=== PATIENT | male | born 1990 | race African-American/Black ===

== ENCOUNTER 2019-03-27 15:11 | Emergency (ER) | payer SELFPAY ==
[~2019-03-27] VITALS: Ht 175.3 cm; Wt 74.8 kg
[2019-03-27 15:19] VITALS: BP 112/67
[2019-03-27] MEDS ORDERED: NKM (15:21)
[2019-03-27] MEDS ORDERED: Tetracaine 0.5% Opth 4ml Soln RIGHT EYE ONE (15:30)
[2019-03-27] MEDS ORDERED: Fluorescein Strips RIGHT EYE ONE (15:30)
--- NOTE | 2019-03-27 15:44 | Emergency Room Report ---
History of Present Illness General Chief Complaint: Eye Problems Source: Patient Present Illness HPI 28-year-old male presents to the emergency department complaining of 8 out of 10 in severity localized pain, swelling, erythema and tenderness to the right lower eyelid 3 days. Patient denies pain inside the eye he denies warm body sensation or scratching sensation. Denies Discharge, changes or loss of vision, Floaters, Flashing lights, Diplopia/blurry vision, or Increased tearing. Denies contact lens use. Allergies: Coded Allergies: No Known Allergies (Unverified , 03/27/19) Patient History Past Medical History: see triage record Past Surgical History: none Pertinent Family History: none Reviewed Nursing Documentation: PMH: Agreed; PSxH: Agreed Nursing Documentation-PMH Past Medical History: No Stated History Review of Systems All Other Systems: negative except mentioned in HPI Physical Exam Vital Signs Date Time Temp Pulse Resp B/P (MAP) Pulse Ox O2 Delivery O2 Flow Rate FiO2 03/27/19 15:19 98.1 83 19 112/67 (82) 95 Room Air Sp02 EP Interpretation: reviewed, normal General Appearance: no apparent distress, alert, GCS 15, non-toxic Head: normocephalic, atraumatic Eyes: right eye lid inflammation - hordeolum externum of the Right eyelid.; bilateral eye normal inspection, bilateral eye PERRL, bilateral eye EOMI, bilateral eye visual acuity ENT: hearing grossly normal, normal voice Neck: full range of motion Respiratory: chest non-tender, lungs clear, normal breath sounds, speaking full sentences Cardiovascular #1: regular rate, rhythm, no edema Gastrointestinal: normal bowel sounds, non tender, soft Rectal: deferred Genitourinary: normal inspection Musculoskeletal: back normal, gait/station normal, normal range of motion, non- tender Neurologic: alert, oriented x3, responsive, motor strength/tone normal, sensory intact, speech normal, grossly normal Psychiatric: judgement/insight normal Skin: normal color, no rash, warm/dry, well hydrated Lymphatic: no adenopathy Medical Decision Making PA Attestation Dr. Arriaga is my supervising Physician whom patient management has been discussed with. Diagnostic Impression: Primary Impression: Hordeolum externum of left lower eyelid ER Course 28-year-old male presents to the emergency department complaining of 8 out of 10 in severity localized pain, swelling, erythema and tenderness to the right lower eyelid 3 days. Patient denies pain inside the eye he denies warm body sensation or scratching sensation. Denies Discharge, changes or loss of vision, Floaters, Flashing lights, Diplopia/blurry vision, or Increased tearing. Denies contact lens use. Ddx considered but are not limited to: FB, Corneal Ulcer, conjunctivitis. Iridis , hordeolum, chalazion. Vital signs: are WNL, pt. is afebrile H&PE are most consistent with: hordeolum externum of the Right eyelid. ORDERS: None required at this time ED INTERVENTIONS: none at this time. DISCHARGE: At this time pt. is stable for d/c to home. Will provide printed patient care instructions, and any necessary prescriptions. Care plan and follow up instructions have been discussed with the patient prior to discharge. Last Vital Signs Date Time Temp Pulse Resp B/P (MAP) Pulse Ox O2 Delivery O2 Flow Rate FiO2 03/27/19 15:19 98.1 83 19 112/67 (82) 95 Room Air Disposition: HOME, SELF-CARE Condition: Stable Patient Instructions: Mj Additional Instructions: Take medications as directed. Follow up with a Clerk To Justice in 3 days, even if your symptoms have resolved. --Please review list of primary care clinics, if you do not already have a primary care provider Return sooner to ED if new symptoms occur, or current symptoms become worse. - Please note that this Emergency Department Report was dictated using [employer] spring win[employer] technology software, occasionally this can lead to erroneous entry secondary to interpretation by the dictation equipment. Sonia Jones Mar 27, 2019 15:44
[2019-03-27] MEDS ORDERED: ERYTHROMYCIN1 G1 OP (15:45)
[2019-03-27] MEDS ORDERED: TYLENOL EXTRA500 MG ORAL (15:45)
[2019-03-27 16:35] VITALS: BP 112/65
== END 2019-03-27 16:36 | disposition home or self-care (01) ==
LOC: EMR 15:42
DX: H00.012 Hordeolum externum right lower eyelid (principal)
CPT/HCPCS: 99282

== ENCOUNTER 2019-03-30 04:27 | Emergency (ER) | payer SELFPAY ==
[~2019-03-30] VITALS: Ht 175.3 cm; Wt 72.6 kg
[~2019-03-30 04:27] MED LIST: ERYTHROMYCIN1 G1 OP; NKM; TYLENOL EXTRA500 MG ORAL
[2019-03-30 04:30] VITALS: BP 120/76
--- NOTE | 2019-03-30 04:30 | NUR ---
ED Nurse Note: Pt arrived ED from home, c/o right lower eye lid redness, pain 9/10 and with a small abscess for 3 days. Pt is A/O X 4. Vital signs stable at this time, waiting for orders.
--- NOTE | 2019-03-30 04:51 | NUR ---
ED Nurse Note: Pain meds given as ordered.
[2019-03-30] MEDS ORDERED: DOXYCYCLINE MO100 MG ORAL (04:52)
[2019-03-30] MEDS ORDERED: POLYTRIM OP SOL10 ML RIGHT EYE (04:52)
[2019-03-30] MEDS ORDERED: HYDROCODON-ACE1 EA15 ORAL (04:52)
--- NOTE | 2019-03-30 04:52 | Emergency Room Report ---
History of Present Illness General Chief Complaint: Eye Problems Source: Patient Present Illness HPI This is a 28-year-old male with no past medical history. He presents with chief complaint of right eye pain and drainage. He was here 3 days ago and diagnosed with a stye. He was given topical antibiotics. That area seemed to be improving a little bit. Now he has more to the edge of the lid. He push on it and there is some drainage. Is painful. No nausea no vomiting. No fever chills. Denies any other complaint. Unable to sleep because of the pain. Allergies: Coded Allergies: No Known Allergies (Unverified , 03/27/19) Patient History Past Medical History: see triage record, old chart reviewed Past Surgical History: none Pertinent Family History: none Social History: Denies: smoking Immunizations: other Reviewed Nursing Documentation: PMH: Agreed; PSxH: Agreed Nursing Documentation-PMH Past Medical History: No Stated History Review of Systems Eye: Reports: eye pain, discharge; Denies: blurred vision ENT: Denies: ear pain, nose congestion, throat swelling Respiratory: Denies: cough, shortness of breath Cardiovascular: Denies: chest pain, palpitations Gastrointestinal: Denies: abdominal pain, diarrhea, nausea, vomiting Musculoskeletal: Denies: back pain, joint pain Skin: Denies: rash Neurological: Denies: headache, numbness Endocrine: Denies: increased thirst, increased urine Hematologic/Lymphatic: Denies: easy bruising All Other Systems: negative except mentioned in HPI Physical Exam Vital Signs Date Time Temp Pulse Resp B/P (MAP) Pulse Ox O2 Delivery O2 Flow Rate FiO2 03/30/19 04:29 98.1 54 16 120/76 (91) 99 Room Air vitals normal Sp02 EP Interpretation: reviewed, normal General Appearance: well appearing, no apparent distress, alert Head: normocephalic, atraumatic Eyes: left eye other - Patient has a small stye to the mid right lower lid. He also has one on the inside by the canthus. No orbital cellulitis.; bilateral eye PERRL, bilateral eye EOMI ENT: hearing grossly normal, normal pharynx Neck: full range of motion, supple, no meningismus Respiratory: chest non-tender, lungs clear, normal breath sounds Cardiovascular #1: regular rate, rhythm, no murmur Gastrointestinal: normal bowel sounds, non tender, no mass, no organomegaly, no bruit, non-distended Musculoskeletal: back normal, gait/station normal, normal range of motion Psychiatric: mood/affect normal Skin: warm/dry Medical Decision Making Diagnostic Impression: Primary Impression: Stye Qualified Codes: H00.012 - Hordeolum externum right lower eyelid ER Course Patient with a stye. No evidence of preseptal or orbital cellulitis. We'll discharge home. Last Vital Signs Date Time Temp Pulse Resp B/P (MAP) Pulse Ox O2 Delivery O2 Flow Rate FiO2 03/30/19 04:29 98.1 54 16 120/76 (91) 99 Room Air Status: improved Disposition: HOME, SELF-CARE Condition: Stable Scripts Polymyxin/Trimethoprim (Polytrim Eye Drops) 10 Ml Drops 1 DROP RIGHT EYE Q4H, #10 ML Prov: Santosh Lovell MD 03/30/19 Hydrocodone/Acetaminophen 5-325* (HYDROCODONE/ACETAMINOPHEN 5-325*) 1 Each Tablet 1 TAB ORAL Q6H PRN for For Pain, #10 TAB 0 Refills Prov: Santosh Lovell MD 03/30/19 Doxycycline Monohydrate* (DOXYCYCLINE MONOHYDRATE*) 100 Mg Capsule 100 MG ORAL Q12H, #14 CAP 0 Refills Prov: Santosh Lovell MD 03/30/19 Referrals: NOT CHOSEN [facility]/,REFERRING (PCP) Additional Instructions: Follow-up with your doctor within a week. You may need a referral to see an credit review manager. Return if symptom worsen. Santosh Lovell MD Mar 30, 2019 04:52
[2019-03-30 05:00] VITALS: BP 122/75
[2019-03-30] MEDS ORDERED: HYDROcodone/Acetamin 5/325 tab ORAL ONE (05:00)
--- NOTE | 2019-03-30 05:00 | NUR ---
ER DISCHARGE NOTE: Patient is cleared to be discharged per Liliya. Pt is aox4 on room air with stable vital signs. Pt was given dc and prescription instructions and was able to verbalize understanding. Pt ID band removed. pt is able to ambulate with steady gait and took all belongings.
== END 2019-03-30 05:00 | disposition home or self-care (01) ==
LOC: EMR 04:36
DX: H00.012 Hordeolum externum right lower eyelid (principal)
CPT/HCPCS: 99282

== ENCOUNTER 2019-06-07 01:04 | Emergency (ER) | payer SELFPAY ==
[~2019-06-07] VITALS: Ht 175.3 cm; Wt 74.8 kg
[~2019-06-07 01:04] MED LIST changes: +DOXYCYCLINE MO100 MG ORAL; +HYDROCODON-ACE1 EA15 ORAL; +POLYTRIM OP SOL10 ML RIGHT EYE
[2019-06-07 01:20] VITALS: BP 119/78
--- NOTE | 2019-06-07 01:20 | Emergency Room Report ---
History of Present Illness General Chief Complaint: Male Urogenital Problems Source: Patient Present Illness [facility] This is a 28-year-old male with no past medical history. He presents with chief complaint of penile discharge and dysuria. Onset for last week. Worse with urination. Discharge is greenish in color. No history of STD. He is sexually active with occasional use of condoms. Denies any other complaint. Allergies: Coded Allergies: No Known Allergies (Unverified , 03/27/19) Patient History Past Medical History: none, see triage record, old chart reviewed Past Surgical History: none Pertinent Family History: none Social History: Denies: smoking Immunizations: other Reviewed Nursing Documentation: PMH: Agreed; PSxH: Agreed Nursing Documentation-PMH Past Medical History: No Stated History Review of Systems Eye: Denies: eye pain, blurred vision ENT: Denies: ear pain, nose congestion, throat swelling Respiratory: Denies: cough, shortness of breath Cardiovascular: Denies: chest pain, palpitations Gastrointestinal: Denies: abdominal pain, diarrhea, nausea, vomiting Genitourinary: Reports: discharge, dysuria Musculoskeletal: Denies: back pain, joint pain Skin: Denies: rash Neurological: Denies: headache, numbness Endocrine: Denies: increased thirst, increased urine Hematologic/Lymphatic: Denies: easy bruising All Other Systems: negative except mentioned in HPI Physical Exam Vital Signs Date Time Temp Pulse Resp B/P (MAP) Pulse Ox O2 Delivery O2 Flow Rate FiO2 06/07/19 01:06 98.4 70 16 119/78 (92) 96 Room Air Vitals normal Sp02 EP Interpretation: reviewed, normal General Appearance: well appearing, no apparent distress, alert Head: normocephalic, atraumatic Eyes: bilateral eye PERRL, bilateral eye EOMI ENT: hearing grossly normal, normal pharynx Neck: full range of motion, supple, no meningismus Respiratory: chest non-tender, lungs clear, normal breath sounds Cardiovascular #1: regular rate, rhythm, no murmur Gastrointestinal: normal bowel sounds, non tender, no mass, no organomegaly, no bruit, non-distended Genitourinary: penis normal, scrotum normal, other - Greenish discharge Musculoskeletal: back normal, gait/station normal, normal range of motion Psychiatric: mood/affect normal Medical Decision Making Diagnostic Impression: Primary Impression: Urethritis, gonococcal, acute ER Course Patient with a greenish penile discharge. Most likely gonorrhea. Azithromycin and Rocephin given here to cover for chlamydia also. Will discharge home. Recommend outpatient testing for HIV, hepatitis, syphilis and other STDs. Last Vital Signs Date Time Temp Pulse Resp B/P (MAP) Pulse Ox O2 Delivery O2 Flow Rate FiO2 06/07/19 01:06 98.4 70 16 119/78 (92) 96 Room Air Status: improved Disposition: HOME, SELF-CARE Condition: Stable Patient Instructions: Urethritis, Adult Additional Instructions: Have your partners treated also. Recommend outpatient testing for hepatitis, syphilis, HIV, and other STDs. Follow-up with your doctor in 7 days. Return if worse. Santosh Lovell MD Jun 07, 2019 01:20
--- NOTE | 2019-06-07 01:20 | NUR ---
ED Nurse Note: Patient walked in to ER due to STDs. AAO x4, VSS at this time.
[2019-06-07] MEDS ORDERED: Azithromycin 250mg tab ORAL ONE (01:30)
[2019-06-07] MEDS ORDERED: Lidocaine 1% MPF 10mg/ml 5ml INJ ONE (01:30)
[2019-06-07 01:49] VITALS: BP 119/78
--- NOTE | 2019-06-07 01:51 | NUR ---
ED Nurse Note: Pt cleared by health care Provider for discharge. DC instructions/prescription was given and explained to pt and verbalized understanding of teachings. All medical deviecs such as ID band removed. Pt is AAO x4, ambulatory and left with all personal belongings.
== END 2019-06-07 02:00 | disposition home or self-care (01) ==
LOC: EMR 01:16
DX: A54.01 Gonococcal cystitis and urethritis, unspecified (principal)
CPT/HCPCS: 96372; 99283; J0696

== ENCOUNTER 2019-09-03 20:13 | Emergency (ER) | payer SELFPAY ==
[~2019-09-03] VITALS: Ht 175.3 cm; Wt 74.8 kg
--- NOTE | 2019-09-03 20:13 | NUR ---
ED Nurse Note: pt presents to ED c/o dysuria, R eye swelling x 1 week. pt denies having these symptoms in the past and denies any blood with urination. pt did not take anything for symptoms [employer]
[2019-09-03] MEDS ORDERED: NKM (20:23)
[2019-09-03 20:52] VITALS: BP 113/66
[2019-09-03] MEDS ORDERED: Azithromycin 250mg tab ORAL ONE (21:15)
[2019-09-03] MEDS ORDERED: Lidocaine 1% MPF 10mg/ml 5ml INJ ONE (21:15)
--- NOTE | 2019-09-03 21:16 | Emergency Room Report ---
History of Present Illness General Chief Complaint: Male Urogenital Problems Source: Patient Present Illness [facility] This is a 29-year-old male with no past medical history. He has a recent infection with gonorrhea. He presents with chief complaint of sore throat and also dysuria. Onset for the last few days. He said he has broke up with his girlfriend and he thought that he may have an infection. No nausea no vomiting. No fever chills but no discharge. Denies any other complaint nothing made it better nothing made it worse. Allergies: Coded Allergies: No Known Allergies (Unverified , 03/27/19) Patient History Past Medical History: see triage record, old chart reviewed Past Surgical History: none Pertinent Family History: none Social History: Denies: smoking Immunizations: other Reviewed Nursing Documentation: PMH: Agreed; PSxH: Agreed Nursing Documentation-PMH Past Medical History: No Stated History Review of Systems Eye: Denies: eye pain, blurred vision ENT: Denies: ear pain, nose congestion, throat swelling Respiratory: Denies: cough, shortness of breath Cardiovascular: Denies: chest pain, palpitations Gastrointestinal: Denies: abdominal pain, diarrhea, nausea, vomiting Genitourinary: Reports: dysuria Musculoskeletal: Denies: back pain, joint pain Skin: Denies: rash Neurological: Denies: headache, numbness Endocrine: Denies: increased thirst, increased urine Hematologic/Lymphatic: Denies: easy bruising All Other Systems: negative except mentioned in HPI Physical Exam Vital Signs Date Time Temp Pulse Resp B/P (MAP) Pulse Ox O2 Delivery O2 Flow Rate FiO2 09/03/19 20:16 98.8 86 17 113/66 (82) Vitals normal Sp02 EP Interpretation: reviewed, normal General Appearance: well appearing, no apparent distress, alert Head: normocephalic, atraumatic Eyes: bilateral eye PERRL, bilateral eye EOMI ENT: hearing grossly normal, normal pharynx Neck: full range of motion, supple, no meningismus Respiratory: chest non-tender, lungs clear, normal breath sounds Cardiovascular #1: regular rate, rhythm, no murmur Gastrointestinal: normal bowel sounds, non tender, no mass, no organomegaly, no bruit, non-distended Musculoskeletal: back normal, gait/station normal, normal range of motion Psychiatric: mood/affect normal Medical Decision Making Diagnostic Impression: Primary Impression: Urethritis ER Course Patient with urethritis. Most likely chlamydia. Gonorrhea and Chlamydia treatment done with Rocephin and azithromycin. No evidence of systemic spread. Will discharge home. Recommend outpatient testing for HIV, hepatitis, syphilis and other STDs. Last Vital Signs Date Time Temp Pulse Resp B/P (MAP) Pulse Ox O2 Delivery O2 Flow Rate FiO2 09/03/19 20:52 98.8 17 113/66 09/03/19 20:16 86 Status: improved Disposition: HOME, SELF-CARE Condition: Stable Patient Instructions: Urethritis, Adult Additional Instructions: Follow-up with your doctor in 7 days. Recommend outpatient testing for HIV, hepatitis, syphilis and other STDs. Return if worse. Santosh Lovell MD Sep 03, 2019 21:16
[2019-09-03 21:32] VITALS: BP 115/66
== END 2019-09-03 21:32 | disposition home or self-care (01) ==
LOC: EMR 21:17
DX: N34.2 Other urethritis (principal); R07.0 Pain in throat
CPT/HCPCS: 96372; 96374; 99284; J0696